=== PATIENT | female | born 1945 | race Caucasian/White ===

== ENCOUNTER 2019-04-07 22:13 | Emergency (ER) | payer MEDICARE ==
[~2019-04-07] VITALS: Ht 162.6 cm; Wt 48.0 kg
--- NOTE | 2019-04-07 22:40 | NUR ---
THIS IS A 73Y F THAT COMES IN FROM [facility], PT HAD AAA STENT PLACED 1WK AGO AT [facility] AND WAS SENT HOME LAST THURSDAY. PT REPORTS SWELLING IN R LEG AND PAIN STARTING THIS AM. PT ALSO REPORTS BACK PAIN STARTING TODAY WELL. PT CONNECTED TO ALL MONITORING, MD AT BEDSIDE TO ASSESS PT. CALL LIGHT IN REACH.
--- NOTE | 2019-04-07 22:47 | NUR ---
LAB AT BEDSIDE
[2019-04-07 22:53] LABS: BASOPHILS # (AUTO) 0.02 x10^3/uL (0-0.1); BASOPHILS % (AUTO) 0 % (0-1); EOSINOPHILS # (AUTO) 0.17 x10^3/uL (0-0.4); EOSINOPHILS % (AUTO) 3 % (1-7); LYMPHOCYTES # (AUTO) 1.17 x10^3/uL (1-3.4); LYMPHOCYTES % (AUTO) 17 % (22-44); MD NO; MEAN CORPUSCULAR HEMOGLOBIN 32.7 pg (27.0-34.8); MEAN CORPUSCULAR HGB CONC 33.5 g/dL (32.4-35.8); MEAN CORPUSCULAR VOLUME 97.6 fL (80-100); MEAN PLATELET VOLUME 7.3 fL (7.4-10.4); MONOCYTES # (AUTO) 0.97 x10^3/uL (0.2-0.8); MONOCYTES % (AUTO) 14 % (2-9); NEUTROPHILS # (AUTO) 4.46 x10^3/uL (1.8-6.8); NEUTROPHILS % (AUTO) 66 % (42-75); PLATELET COUNT 263 x10^3/uL (130-400); RED BLOOD COUNT 2.78 x10^6/uL (3.82-5.3); RED CELL DISTRIBUTION WIDTH 13.5 % (9.6-15.2)
[2019-04-07 23:04] LABS: ANION GAP 6 mmol/L (5-15); CALCIUM 8.4 mg/dL (8.5-10.1); CHLORIDE 107 mmol/L (98-107); CREATININE 0.53 mg/dL (0.55-1.02)
[2019-04-07 23:08] LABS: PROTHROMBIN TIME 10.6 Seconds (9.6-11.5)
--- NOTE | 2019-04-07 23:08 | NUR ---
US AT BEDSIDE
--- NOTE | 2019-04-07 23:29 | NUR ---
PT RESTING ON MELVIN [place]. NO FURTHER NEEDS AT THIS TIME.
--- NOTE | 2019-04-07 23:43 | NUR ---
AT BEDSIDE TO DISCUSS POC WITH PT AT THIS TIME
[2019-04-08] MEDS ORDERED: ACETAMINOPHEN 325 MG TABLET PO ONE (01:00)
[2019-04-08] MEDS ORDERED: ACETAMINOPHEN 325 MG TABLET ONE (01:23)
[2019-04-08 01:57] VITALS: BP 156/60
--- NOTE | 2019-04-08 01:59 | NUR ---
TASK RN: PT RETURNED FROM CT. NAD NOTED. PT REPORTS 10/10 PAIN. ERP AWARE. AWAITING ORDERS, BP/SPO2/ECG MONITORING IN PLACE.
[2019-04-08] MEDS ORDERED: OMNIPAQUE 350 MG/ML, 100ML BOTTLE ONE (02:00)
[2019-04-08] MEDS ORDERED: ONDANSETRON 2MG/ML, 2ML ONE (02:07)
[2019-04-08] MEDS ORDERED: FENTANYL PF 100 MCG/2ML ONE (02:08)
[2019-04-08] MEDS ORDERED: ONDANSETRON 2MG/ML, 2ML IVPush ONE (02:30)
[2019-04-08] MEDS ORDERED: FENTANYL PF 100 MCG/2ML IV ONE (02:30)
--- NOTE | 2019-04-08 02:39 | NUR ---
HOSPITALIST AT BEDSIDE TO ADMIT PT AT THIS TIME
== END 2019-04-08 03:25 | disposition home or self-care (01) ==
LOC: ED 23:33
DX: M54.5 Low back pain (principal); R60.0 Localized edema; I10 Essential (primary) hypertension
CPT/HCPCS: 36415; 74175; 80048; 85025; 85610; 93005; 93926; 93970; 96374; 96375; 99284; J2405; J3010; Q9967